=== PATIENT | female | born 1985 | race American Indian/Alaskan Native ===

== ENCOUNTER 2017-10-05 14:47 | Outpatient (CLI) | payer MEDICAID ==
--- NOTE | 2017-10-05 16:58 | Ultrasound Report ---
FINAL REPORT EXAM: US PELVIC COMPLETE HISTORY: VAGINAL BLEEDING LMP 09/28/2017. Prior history of ovarian cysts. Dysfunctional uterine bleeding. TECHNIQUE: Ultrasound of the pelvis using transabdominal and transvaginal imaging PRIORS: None. FINDINGS: Uterus: Uterus is normal in size, retroverted in position, and normal and homogeneous in echogenicity. The uterus measures 8.0 x 6.5 x 5.6 cm in size. Multiple fibroids are seen in the uterus. There are 2 adjacent fibroids in the left anterior fundus. The 1st is heterogeneous in echogenicity and measuring 1.5 x 1.1 x 1.5 cm, located cranially. The 2nd is isoechoic and homogeneous in echogenicity, measuring 2.3 x 2.0 x 2.3 cm, and located caudally. There is a 3rd fibroid along the posterior aspect of the uterine fundus measuring 1.4 x 1.1 x 1.6 cm. This fibroid is hypoechoic. Endometrial stripe: Normal and uniform in thickness measuring 12.7 mm. Ovaries: Right ovary is enlarged in size. The left ovary is normal in size. Both are normal in echogenicity with normal blood flow bilaterally. The right ovary measures 4.3 x 2.4 x 3.5 cm and the left ovary measures 3.5 x 1.9 x 1.5 cm in size. Physiologic cyst in the right ovary measuring 1.4 x 1.2 x 1.1 cm is seen. There is a simple physiologic cyst in the left ovary measures 0.9 x 1.0 x 0.9 cm. Both of these are almost certainly benign. Other: There is no evidence for solid adnexal mass but there is a small amount of free fluid in the cul-de-sac seen. IMPRESSION: 1. Multiple fibroids identified in the uterine fundus 2. retroverted uterus. 3. otherwise, negative exam.
== END 2017-10-05 14:48 | disposition home or self-care (01) ==
LOC: US 14:47
PROVIDERS: ATTEND Obstetrics & Gynecology
DX: D25.9 Leiomyoma of uterus, unspecified (principal); N83.201 Unspecified ovarian cyst, right side; N83.202 Unspecified ovarian cyst, left side; N85.4 Malposition of uterus
CPT/HCPCS: 76830; 76856